=== PATIENT | female | born 1955 | race Caucasian/White ===

== ENCOUNTER 2016-06-09 15:32 | Emergency (ER) | payer BC ==
[~2016-06-09 15:32] MED LIST: CLARITIN10 MG; NASONEX17 GM
[2016-06-09] MEDS ORDERED: ULTRAM50 M1 PO (15:43)
[2016-06-09] MEDS ORDERED: XARELTO10 M1 PO (15:44)
[2016-06-09] MEDS ORDERED: MOBIC15 M2 PO (15:44)
[2016-06-09 18:45] LABS: ALB/GLOB RATIO 0.7 (0.8-2.0); ALBUMIN 2.8 g/dl (3.5-5.0); ALKALINE PHOSPHATASE 78 U/L (33-138); ALT/SGPT 36 U/L (12-78); ANION GAP 10 mmol/L (0-20); AST/SGOT 36 U/L (10-40); BILIRUBIN,TOTAL 0.4 mg/dl (0-1.5); BLOOD UREA NITROGEN 13 mg/dl (6-24); CALCIUM 8.4 mg/dl (8.5-10.5); CARBON DIOXIDE-VENOUS 28 mmol/L (22-32); CHLORIDE 105 mmol/l (96-110); CREATININE 0.75 mg/dl (0.50-1.10); GLUCOSE 93 mg/dL (70-110); POTASSIUM 4.3 mmol/L (3.7-5.1); SODIUM 139 mmol/L (135-145); eGFR VALUE FOR BLACK >90 mL/Min
== END 2016-06-09 19:49 ==
LOC: EDMED 15:32
PROVIDERS: Orthopaedic Surgery Orthopaedic Surgery of the Spine
DX: R22.42 Localized swelling, mass and lump, left lower limb (principal)
CPT/HCPCS: Q9967